=== PATIENT | female | born 1940 | race Caucasian/White ===

== ENCOUNTER 2017-10-29 10:11 | Outpatient (CLI) | payer MEDICARE | END 2017-10-29 10:12 | disposition critical access hospital (66) | LOC: EMS 10:11 | PROVIDERS: ATTEND Surgery | DX: R42 Dizziness and giddiness (principal) | CPT/HCPCS: A0425; A0427 ==

== ENCOUNTER 2017-10-29 10:46 | Emergency (ER) | payer MEDICARE ==
--- NOTE | 2017-10-29 10:59 | ED Physician Documentation ---
History of Present Illness - Stated complaint Stated Complaint: VERTIGO - Chief complaint Chief Complaint: Neuro - Additonal information Additional information: 77 f awoke with vertigo and blurry vision no numbness or weakness no fall no [place] or neck pain improving now has blurry vision R eye s/p corneal transplant but worse today Review of Systems Constitutional: denies: Fever, Chills Eyes: reports: Decreased vision Cardiac: denies: Chest pain / pressure, Palpitations Respiratory: denies: Dyspnea, Cough GI: denies: Abdominal Pain, Nausea, Vomiting Musculoskeletal: denies: Neck pain Neurologic: reports: Other (vertigo). denies: Generalized weakness, Focal weakness, Numbness, Difficulty speaking, Headache, Head injury Endocrine: denies: Easy bruising / bleeding Immunocompromised: denies: Immunocompromised PD PAST MEDICAL HISTORY - Past Medical History Cardiovascular: Hypertension, High cholesterol, [place] Respiratory: None Endocrine/Autoimmune: None GI: None : None HEENT: None Psych: None Musculoskeletal: None Derm: None - Past Surgical History Past Surgical History: Yes General: Other Cardiovascular: Coronary stent - Present Medications Home Medications: Ambulatory Orders Medication Instructions Recorded Confirmed Aspirin 325 mg PO 03/03/13 03/03/13 Lisinopril [Zestril] 40 mg PO DAILY 03/03/13 03/03/13 Lovastatin 80 mg PO 03/03/13 03/03/13 Ondansetron [Zofran Odt] 8 mg PO Q6H PRN #10 tab.rapdis 03/03/13 oxyCODONE/ACET 5/325 [Percocet 5 1 each PO Q4-6H PRN #15 tablet 03/03/13 mg/325 mg] - Allergies Allergies/Adverse Reactions: Allergies Allergy/AdvReac Type Severity Reaction Status Date / Time codeine [Codeine] AdvReac Intermediate Nausea Verified 03/03/13 06:21 - Social History Does the pt smoke?: No Smoking Status: Never smoker Does the pt drink ETOH?: Yes Does the pt have substance abuse?: No - Immunizations Immunizations are current?: No - POLST Patient has POLST: Yes POLST Status: Limited Interventions PD ED PE NORMAL - Vitals Vital signs reviewed: Yes - General General: Alert and oriented X 3 - HEENT HEENT: PERRL, EOMI (nystagmus looking R), Ears normal - Neck Neck: Supple, no meningeal sign - Cardiac Cardiac: RRR - Respiratory Respiratory: No respiratory distress, Clear bilaterally - Abdomen Abdomen: Soft, Non tender - Neuro Neuro: Alert and oriented X 3, supervisor alum plant 2-12 intact, No motor deficit, No sensory deficit, Normal speech, Other (NIHSS zero) Eye Opening: Spontaneous Motor: Obeys Commands Verbal: Oriented GCS Score: 15 Results - Vitals Vitals: Vital Signs - 24 hr 10/29/17 10/29/17 10/29/17 10:47 12:14 12:55 Temperature 36.0 C L 36.3 C L Heart Rate 50 L 46 L 49 L Respiratory 16 14 14 Rate Blood Pressure 161/64 H 152/52 H 161/46 H O2 Saturation 97 97 93 10/29/17 15:15 Temperature 36.4 C L Heart Rate 40 L Respiratory 16 Rate Blood Pressure 174/58 H O2 Saturation 97 Oxygen O2 Source Room air - EKG (time done) 1511 Rate: Rate (enter#) (44) Rhythm: Sinus bradycardia Ischemia: Q waves (inferior V1 and V2) - Labs Labs: Laboratory Tests 10/29/17 10/29/17 10/29/17 13:43 13:43 13:43 WBC 7.7 RBC 3.93 L Hgb 13.1 Hct 39.0 MCV 99.0 MCH 33.2 H MCHC 33.6 RDW 14.3 Plt Count 215 MPV 9.3 Neut # 5.3 Lymph # 1.7 [place] # 0.5 Eos # 0.1 Baso # 0.1 Absolute Nucleated RBC 0.00 Nucleated RBC % 0.1 Sodium 137 Potassium 4.6 Chloride 104 Carbon Dioxide 26 Anion Gap 7.0 BUN 26 H Creatinine 1.5 H Estimated GFR (MDRD) 34 L Glucose 122 H Calcium 9.6 Troponin I < 0.04 - Rads (name of study) [facility] Radiology: See rad report (no acute) PD MEDICAL DECISION MAKING - ED course ED course: CT no acute sx improved but not better after meclizine still unsteady on her feet noted to have periods of bradycardia to mid 30s, sinus yogi no block not on BB or CCB to explain - meds not updated in EMR but I reviewed with pt as well as [facility] (off her amplodipine for at least a month) but age 77 and HR 30s and unsteady is not safe needs further cardiac wup and consideration of a [facility] pt paged [facility] center at 1330 [facility] confirmed acceptance at 1530 accepting [facility] to arrange transfer, req pacer pads for transfer pt updated Departure - Departure Disposition: 02 Transfer Acute Care Hosp Clinical Impression: Bradycardia, Dizzy Condition: Good
[2017-10-29] MEDS: MECLIZINE 12.5 MG TABLET PO STA (11:14)
--- NOTE | 2017-10-29 12:09 | CT Report ---
EXAM: CT HEAD EXAM DATE: 10/29/2017 11:39 AM. CLINICAL HISTORY: Vertigo blurry vision. COMPARISON: 03/03/2013. 03/05/2013. TECHNIQUE: Multiaxial CT images were obtained from the foramen magnum to the vertex. Reformats: Coron al. IV contrast: None. In accordance with CT protocol optimization, one or more of the following dose reduction techniques w ere utilized for this exam: automated exposure control, adjustment of mA and/or KV based on patient s ize, or use of iterative reconstructive technique. FINDINGS: Parenchyma: No evidence of an acute vascular insult or acute parenchymal hemorrhage. No midline shift . No mass effect. Parenchymal volume loss with periventricular regions of low attenuation. Extraaxial Spaces: Mildly prominent. No subdural or epidural collections identified. Ventricles: Normal in size and position. Sinuses and Orbits: Imaged paranasal sinuses, orbits, and mastoids show no significant abnormality. Bones: No evidence of fracture or calvarial defect. Other: Globes and orbits are unremarkable. Vascular calcifications are noted. IMPRESSION: 1. No acute intracranial abnormality is identified. 2. Mild parenchymal volume loss and chronic white matter changes. [facility] Referring Provider Line: [phone] SITE ID: [id number]
[2017-10-29 13:46] LABS: BASOPHILS # (AUTO) 0.1 10^3/uL (0.0-0.1); EOSINOPHILS # (AUTO) 0.1 10^3/uL (0.0-0.7); EOSINOPHILS % (AUTO) 1.8 %; HGB - HEMOGLOBIN 13.1 g/dL (12.0-16.0); LYMPHOCYTES # (AUTO) 1.7 10^3/uL (1.5-3.5); LYMPHOCYTES % (AUTO) 22.1 %; MEAN CORPUSCULAR HEMOGLOBIN 33.2 pg (27.0-31.0); MEAN CORPUSCULAR HGB CONC 33.6 g/dL (32.0-36.0); MEAN PLATELET VOLUME 9.3 fL (7.9-10.8); MONOCYTES # (AUTO) 0.5 10^3/uL (0.0-1.0); MONOCYTES % (AUTO) 6.3 %; NEUTROPHILS # (AUTO) 5.3 10^3/uL (1.5-6.6); NEUTROPHILS % (AUTO) 68.8 %; PLT - PLATELET COUNT 215 10^3/uL (130-450); RED BLOOD COUNT 3.93 10^6/uL (4.20-5.40); RED CELL DISTRIBUTION WIDTH 14.3 % (12.0-15.0); WHITE BLOOD COUNT 7.7 x10^3/uL (4.8-10.8)
[2017-10-29 13:59] LABS: CALCIUM 9.6 mg/dL (8.5-10.3); CREATININE 1.5 mg/dL (0.4-1.0)
[2017-10-29 17:43] VITALS: BP 156/54
== END 2017-10-29 19:05 | disposition short-term general hospital (02) ==
LOC: ED 10:46 → SUPCPDRO 10:46 → ED 19:05
DX: R00.1 Bradycardia, unspecified (principal); R42 Dizziness and giddiness; I10 Essential (primary) hypertension; I25.2 Old myocardial infarction; E78.00 Pure hypercholesterolemia, unspecified; Z79.82 Long term (current) use of aspirin
CPT/HCPCS: 36415; 70450; 80048; 84484; 85025; 93005; 99284; 99285

== ENCOUNTER 2022-04-17 12:33 | Emergency (ER) | payer MEDICARE ==
--- NOTE | 2022-04-17 13:28 | XRAY Report ---
PROCEDURE: Chest 1 View X-Ray INDICATIONS: Chest pain TECHNIQUE: One view of the chest was acquired. COMPARISON: None. FINDINGS: Surgical changes and devices: None. Lungs and pleura: No pleural effusions or pneumothorax. Lungs are clear. Mediastinum: Mediastinal contours appear normal. Heart size is normal. Bones and chest wall: No suspicious bony lesions. Overlying soft tissues appear unremarkable. IMPRESSION: No acute cardiopulmonary pathology. Reviewed by: Seymour Kohler MD on 04/17/2022 1:27 PM PDT Approved by: Seymour Kohler MD on 04/17/2022 1:27 PM PDT Station ID: [id number]
[2022-04-17 13:37] LABS: BASOPHILS # (AUTO) 0.1 10^3/uL (0.0-0.1); BASOPHILS % (AUTO) 0.8 %; EOSINOPHILS # (AUTO) 0.4 10^3/uL (0.0-0.7); HCT - HEMATOCRIT 39.4 % (37.0-47.0); HGB - HEMOGLOBIN 12.6 g/dL (12.0-16.0); LYMPHOCYTES # (AUTO) 2.2 10^3/uL (1.5-3.5); LYMPHOCYTES % (AUTO) 28.7 %; MEAN CORPUSCULAR HEMOGLOBIN 32.2 pg (27.0-31.0); MEAN CORPUSCULAR VOLUME 100.8 fL (81.0-99.0); MEAN PLATELET VOLUME 11.3 fL (7.9-10.8); MONOCYTES # (AUTO) 0.7 10^3/uL (0.0-1.0); MONOCYTES % (AUTO) 8.5 %; NEUTROPHILS # (AUTO) 4.4 10^3/uL (1.5-6.6); NEUTROPHILS % (AUTO) 56.9 %; PLT - PLATELET COUNT 206 10^3/uL (130-450); RED BLOOD COUNT 3.91 10^6/uL (4.20-5.40); RED CELL DISTRIBUTION WIDTH 13.3 % (12.0-15.0); WHITE BLOOD COUNT 7.8 x10^3/uL (4.8-10.8)
[2022-04-17 13:52] LABS: ALBUMIN 3.7 g/dL (3.2-5.5); ALBUMIN/GLOBULIN RATIO 1.1 (1.0-2.2); BILIRUBIN,TOTAL 0.6 mg/dL (0.2-1.0); CALCIUM 9.7 mg/dL (8.5-10.3); CREATININE 1.7 mg/dL (0.4-1.0); POTASSIUM 4.1 mmol/L (3.5-5.0); TOTAL PROTEIN 7.2 g/dL (6.7-8.2)
--- NOTE | 2022-04-17 16:41 | ED Physician Documentation ---
History of Present Illness - Stated complaint Stated Complaint: HIGH BP - Chief complaint Chief Complaint: Cardiac - Additonal information Additional information: 82-year-old female presents emergency department for the evaluation of elevated blood pressures that she has noticed are creeping up over the last week. She is currently taking 20 mg lisinopril daily. She does have known stage III chronic kidney disease. She is followed by Dr. Prieto through [facility]. She has checked her blood pressure at various pharmacies and at her daughter's clinic and found that the systolic was over 200. She is denying chest pain or shortness of air but is occasionally feeling dizzy. No lower extremity swelling. No nausea vomiting or diaphoresis. She does have a history of coronary artery disease status post stenting x2 in 1999 Review of Systems Constitutional: denies: Fever, Chills Throat: reports: Reviewed and negative Cardiac: reports: Reviewed and negative Respiratory: reports: Reviewed and negative GI: reports: Reviewed and negative : reports: Reviewed and negative PD PAST MEDICAL HISTORY - Past Medical History Cardiovascular: Hypertension, High cholesterol, [place] Respiratory: None Endocrine/Autoimmune: None GI: None : None HEENT: None Psych: None Musculoskeletal: None Derm: None - Past Surgical History Past Surgical History: Yes General: Other /ACTIVITY ASSISTANT: Mastectomy Cardiovascular: Coronary stent HEENT: Other - Present Medications Home Medications: Ambulatory Orders Medication Instructions Recorded Confirmed lisinopriL [Zestril] 40 mg PO DAILY 03/03/13 04/17/22 Acyclovir 400 mg PO DAILY 04/17/22 04/17/22 Atorvastatin Calcium [Lipitor] 80 mg PO HS 04/17/22 04/17/22 - Allergies Allergies/Adverse Reactions: Allergies Allergy/AdvReac Type Severity Reaction Status Date / Time codeine [Codeine] AdvReac Intermediate Nausea Verified 03/03/13 06:21 - Social History Does the pt smoke?: No Smoking Status: Never smoker Does the pt drink ETOH?: Yes Does the pt have substance abuse?: No - Immunizations Immunizations are current?: No - POLST Patient has POLST: Yes POLST Status: Limited Interventions PD ED PE NORMAL - General General: Alert and oriented X 3, No acute distress, Well developed/nourished - HEENT HEENT: Atraumatic, Moist mucous membranes - Neck Neck: Supple, no meningeal sign, No adenopathy - Cardiac Cardiac: RRR, No murmur - Respiratory Respiratory: No respiratory distress, Clear bilaterally - Abdomen Abdomen: Normal bowel sounds, Soft, Non tender - Derm Derm: Normal color, Warm and dry - Extremities Extremities: No deformity, No tenderness to palpate, Normal ROM s pain - Neuro Neuro: Alert and oriented X 3, chief nurse executive 2-12 intact Eye Opening: Spontaneous Motor: Obeys Commands Verbal: Oriented GCS Score: 15 Results - Vitals Vitals: Vital Signs - 24 hr 04/17/22 04/17/22 12:55 16:43 Temperature 36 C L Heart Rate 44 L 58 L Respiratory 16 16 Rate Blood Pressure 183/53 H 219/64 H O2 Saturation 100 100 Oxygen O2 Source Room air - EKG (time done) 1307 Rate: Rate (enter#) (41) Rhythm: Sinus bradycardia [place]: Normal Intervals: Normal RI. No: Prolonged QT QRS: Normal Ischemia: Q waves (inferior leads ) Compare to prior EKG: Unchanged from prior EKG Computer interpretation: Agree with computer - Labs Labs: Laboratory Tests 04/17/22 04/17/22 04/17/22 13:34 13:34 13:34 WBC 7.8 RBC 3.91 L Hgb 12.6 Hct 39.4 MCV 100.8 H MCH 32.2 H MCHC 32.0 RDW 13.3 Plt Count 206 MPV 11.3 H Neut # (Auto) 4.4 Lymph # (Auto) 2.2 [place] # (Auto) 0.7 Eos # (Auto) 0.4 Baso # (Auto) 0.1 Absolute Nucleated RBC 0.00 Nucleated RBC % 0.0 Sodium 137 Potassium 4.1 Chloride 105 Carbon Dioxide 26 Anion Gap 6.0 BUN 31 H Creatinine 1.7 H Estimated GFR (MDRD) 29 L Glucose 96 Calcium 9.7 Total Bilirubin 0.6 AST 29 ALT 21 Alkaline Phosphatase 76 Troponin I High Sens 7.8 Total Protein 7.2 Albumin 3.7 Globulin 3.5 Albumin/Globulin Ratio 1.1 Lipase 77 H PD MEDICAL DECISION MAKING - ED course Complexity details: reviewed results, re-evaluated patient, considered differential, d/w patient ED course: 8-year-old female who has a longstanding history of hypertension as well as coronary artery disease status post stenting x2 presents emergency department for concerns that her blood pressures have been creeping up over the last week or so. She has periodically measured them and found the systolic greater than 200. She does have known chronic kidney disease and is followed closely by internal medicine through [facility]. Here in the emergency department she is alert and well-appearing. Her EKG does show a sinus bradycardia with old inferior Q waves. This is essentially unchanged from the recent 1 in 2018. CBC and electrolytes were obtained today. We do note that her creatinine is mildly elevated 1.3. This is consistent with her known history of chronic kidney disease. She does have a widened pulse pressure on blood pressure management however I was not unable to discern any murmur on cardiac auscultation. I discussed this finding with the patient. I have made the recommendation for follow-up with primary to obtain echocardiogram. Aortic valve regurgitation is in the differential. Despite the elevated blood pressure she does not present as hypertensive emergency or urgency. Troponin was negative. We discussed further blood pressure management and patient has elected to begin taking 40 mg of lisinopril daily instead of the addition of a second medication. She has good follow-up with her primary and will schedule an appointment as soon as possible. Otherwise emergent return precautions were discussed for worsening symptoms. Departure - Departure Disposition: 01 Home, Self Care Clinical Impression: Widened pulse pressure, Chronic kidney disease (CKD) stage G3a/A1, moderately decreased glomerular filtration rate (GFR) between 45-59 mL/min/1.73 square meter and albuminuria creatinine ratio less than 30 mg/g Hypertension Qualifiers: Hypertension type: primary hypertension Qualified Code(s): I10 - Essential (primary) hypertension Condition: Stable Record reviewed to determine appropriate education?: Yes Follow-Up: Norma Ochoa MD [Primary Care Provider] - Comments: Sunshine lets have you begin taking lisinopril 20 mg twice daily. This will give you morning and evening coverage. I would like you to start taking your blood pressure 1 hour after taking the lisinopril each day. While here in the emergency department your CBC and electrolytes did not show any new worrisome findings it is clear that you do have stage III chronic kidney disease. With the worsening blood pressures and your widened pulse pressure I would like you to follow close with your primary care provider. You would benefit from getting a repeat echocardiogram. If at any point you find that you are developing chest pain, have any fainting episodes severe shortness of air then please return immediately to the emergency department.
[2022-04-17 16:46] VITALS: BP 219/64
== END 2022-04-17 17:07 | disposition home or self-care (01) ==
LOC: ED 12:33
DX: I12.9 Hypertensive chronic kidney disease with stage 1 through stage 4 chronic kidney disease, or unspecified chronic kidney disease (principal); N18.31 Chronic kidney disease, stage 3a
CPT/HCPCS: 36415; 80053; 83690; 84484; 85025; 93005; 99284